=== PATIENT | male | born 1975 | race Caucasian/White ===

== ENCOUNTER 2019-06-08 09:14 | Day surgery (SDC) | payer OTHER ==
[2019-06-05 15:50] VITALS: BMI 29.3
[2019-06-08] MEDS ORDERED: KETOROLAC TROMETHAMINE 30 MG/1 ML VIAL ONE (11:11)
[2019-06-08] MEDS ORDERED: ceFAZolin SODIUM 1 GM VIAL ONE ×3 (11:11→12:56)
[2019-06-08] MEDS ORDERED: SODIUM CHLORIDE 0.9% P/F 10 ML VIAL IJ ONE (11:11)
[2019-06-08] MEDS ORDERED: LIDOCAINE HCL/PF 2% SDV 5ML VIAL ONE ×2 (11:11→12:27)
[2019-06-08] MEDS ORDERED: ONDANSETRON 4 MG/2 ML VIAL ONE (11:11)
[2019-06-08] MEDS ORDERED: DEXAMETHASONE SOD PHOSPHATE 4 MG/1 ML VIAL ONE (11:11)
[2019-06-08] MEDS ORDERED: MIDAZOLAM HCL 2 MG/2 ML SINGLE DOSE VIAL ONE (12:05)
[2019-06-08] MEDS ORDERED: PROPOFOL 20 ML ONE ×2 (12:28)
[2019-06-08] MEDS ORDERED: BUPIVACAINE HCL/PF 2.5 MG/ML - 30 ML VIAL IJ ONE (13:12)
[2019-06-08] MEDS ORDERED: BUPIVACAINE HCL/PF 0.25% (2.5MG/ML) 10 ML VIAL IJ ONE (13:32)
[2019-06-08] MEDS ORDERED: PROMETHAZINE HCL 25 MG/1 ML VIAL IVPUSH PRN (13:52)
[2019-06-08] MEDS ORDERED: oxyCODONE HCL 5 MG TABLET PO PRN (13:52)
[2019-06-08] MEDS ORDERED: ONDANSETRON 4 MG/2 ML VIAL IVPUSH PRN (13:52)
--- NOTE | 2019-06-08 14:07 | OP ---
DATE OF OPERATION: 06/08/2019 Done at [facility] [place] SURGEON: Hernando Carrera MD DESK LIEUTENANT: RADHA Garcia PREOPERATIVE DIAGNOSIS: Left distal biceps rupture. POSTOPERATIVE DIAGNOSIS: Left distal biceps rupture. PROCEDURE: Reinsertion/repair distal biceps, left elbow. FINDINGS: Avulsed biceps, left elbow. DESCRIPTION OF PROCEDURE: Informed consent was obtained. Patient was taken to the operating room where the left upper extremity was prepped and draped in sterile fashion. Tourniquet was placed to the upper arm and inflated to 250 mmHg. Horizontal incision was made 2 cm distal to the elbow crease. Careful attention was made to avoid neurovascular structures. Fascia was incised, and the biceps tendon was identified. This was removed of thickened scar tissue along the distal portion and contoured to allow for passage with a toggle lock device. Two No. 2 FiberWire sutures were tied into the biceps tendon and secured to toggle lock device using a Ramer interlocking stitch. The proximal radius was identified at the site of the biceps insertion with the arm fully supinated. A guidewire was placed from the anterior to posterior cortices followed by a 7-mm reamer on the anterior cortices and a 4-mm reamer taken through the anterior and into the posterior cortices. The toggle lock device was then placed into position and passed through the anterior to posterior cortex and then turned 90 degrees locking it across the posterior cortex. The wound was irrigated with copious amounts of irrigation. All loose debris and bone debris was removed. The tendon was tightened into the anterior cortex bringing the tendon into the bleeding bone. This was secured into position. Elbow was flexed 90 degrees and secured to put it deep into the proximal radius. The wound was irrigated was copious amounts of irrigation. Tourniquet was released. There was no evidence of active bleeding. Layered closure of 0 Vicryl, 2-0 Vicryl, 3-0 Prolene was performed. Sterile dressing and posterior splint was placed. The patient was transferred to recovery room without complication. The PA listed above was present and assisted at surgery. Their presence was absolutely medically necessary for the completion of the procedure. They helped hold the arthroscopy, pass instruments (and implants when indicated) and the procedure could not have been completed without their assistance. HERNANDO CARRERA M.D. [id number]
[2019-06-08 15:26] VITALS: TEMP 97.6
[2019-06-08 15:49] VITALS: BP 124/72; PULSE 66
== END 2019-06-08 15:52 | disposition home or self-care (01) ==
LOC: FASU 09:14
PROVIDERS: ATTEND Orthopaedic Surgery
PROC: 0LM40ZZ Reattachment of Left Upper Arm Tendon, Open Approach (ICD-10-PCS; principal; 2019-06-08 13:01)
DX: M66.829 Spontaneous rupture of other tendons, unspecified upper arm (principal)
CPT/HCPCS: 94760